=== PATIENT | male | born 1995 | race Hispanic/Latino ===

== ENCOUNTER 2022-05-15 11:17 | Inpatient (IN) | payer OTHER ==
[~2022-05-15] VITALS: Ht 180.3 cm; Wt 103.9 kg
[2022-05-15] MEDS ORDERED: LORazepam 2 MG TAB PO PRN (11:35)
[2022-05-15 12:19] LABS: HEMATOCRIT 45.2 % (42.0-52.0); HEMOGLOBIN 15.1 g/dl (13.5-17.5); MEAN CORPUSCULAR HEMOGLOBIN 32.4 pg (27.0-33.0); MEAN CORPUSCULAR HGB CONC 33.4 g/dl (32.0-36.5); PLATELET COUNT, AUTOMATED 195 10^3/uL (150-450); RED BLOOD COUNT 4.66 10^6/uL (4.30-6.10)
[2022-05-15 12:36] LABS: ETHYL ALCOHOL (ETHANOL) 0.242 % (0.000-0.010)
[2022-05-15 12:38] LABS: ACETAMINOPHEN LEVEL < 2.0 UG/ML (10.0-20.0); SALICYLATE LEVEL < 3.0 MG/DL (<30)
[2022-05-15 12:43] LABS: ALBUMIN 4.4 G/DL (3.2-5.2); ALKALINE PHOSPHATASE 85 U/L (46-116); ALT/SGPT 41 U/L (7.0-40); AST/SGOT 41 U/L (<34); BILIRUBIN,DIRECT 0.1 MG/DL (<0.4); BILIRUBIN,TOTAL 0.6 MG/DL (0.3-1.2); BLOOD UREA NITROGEN 10 MG/DL (9-23); CALCIUM LEVEL 8.3 MG/DL (8.5-10.1); CARBON DIOXIDE LEVEL 25 MMOL/L (20-31); CHLORIDE LEVEL 103 MMOL/L (98-107); CREATININE FOR GFR 0.82 MG/DL (0.70-1.30); GLOMERULAR FILTRATION RATE > 60.0 (>60); GLUCOSE, FASTING 95 MG/DL (60-100); POTASSIUM SERUM 3.9 MMOL/L (3.5-5.1); SODIUM LEVEL 140 MMOL/L (136-145); THYROID STIMULATING HORMONE 1.172 uIU/ML (0.55-4.78); TOTAL PROTEIN 7.9 G/DL (5.7-8.2)
[2022-05-15] MEDS ORDERED: RIFA30CA PO.IMMUN (14:43)
[2022-05-15 15:15] LABS: AMPHETAMINES LEVEL URINE NEGATIVE (NEGATIVE); BARBITURATES URINE NEGATIVE (NEGATIVE); BENZODIAZEPINES URINE NEGATIVE (NEGATIVE)
[2022-05-15 15:16] LABS: CANNABINOIDS URINE NEGATIVE (NEGATIVE); COCAINE METABOLITE URINE NEGATIVE (NEGATIVE); METHADONE URINE NEGATIVE (NEGATIVE); PHENCYCLIDINE URINE NEGATIVE (NEGATIVE)
[2022-05-15 15:17] LABS: OPIATES URINE NEGATIVE (NEGATIVE)
[2022-05-15] MEDS: THIAMINE 100 MG TAB PO SCH (21:36)
[2022-05-15] MEDS: rifAMPin 150MG CAPSULE PO SCH (21:37)
[2022-05-15] MEDS ORDERED: RIFA300C8 PO (23:51)
[2022-05-16] MEDS ORDERED: HOME MED LIST COMPLETE! XX SCH (08:10)
[2022-05-16] MEDS ORDERED: FOLIC ACID 1MG TAB PO SCH (09:00)
[2022-05-16] MEDS ORDERED: MULTIVITAMINS/MINERALS THERAP 1 TAB PO SCH (09:00)
[2022-05-16] MEDS: THIAMINE 100 MG TAB PO SCH ×2 (09:19→20:59)
[2022-05-16] MEDS: rifAMPin 150MG CAPSULE PO SCH (09:19)
[2022-05-16] MEDS ORDERED: IBUPROFEN 400MG TAB PO PRN (13:05)
[2022-05-16] MEDS ORDERED: LORazepam 2 MG TAB PO PRN (13:05)
[2022-05-16] MEDS ORDERED: traZODone 50 MG TAB PO PRN (13:05)
[2022-05-16] MEDS ORDERED: MAALOX 30 ML SUSP *UDC PO PRN (13:05)
[2022-05-16] MEDS ORDERED: MOM 30ML SUSPENSION UDC PO PRN (13:05)
[2022-05-16 16:00] VITALS: BP 133/80
[2022-05-16] MEDS ORDERED: rifAMPin 150MG CAPSULE PO ONE (17:00)
[2022-05-16 22:03] VITALS: BP 138/86
[2022-05-17 06:38] VITALS: BP 128/71
[2022-05-17] MEDS: NICOTINE 21MG/24HR 1 EA TRANSDERMAL TD SCH (09:00)
[2022-05-17] MEDS ORDERED: rifAMPin 150MG CAPSULE PO SCH (09:00)
[2022-05-17] MEDS: MULTIVITAMINS/MINERALS THERAP 1 TAB PO SCH (09:22)
[2022-05-17] MEDS: FOLIC ACID 1MG TAB PO SCH (09:22)
[2022-05-17] MEDS: THIAMINE 100 MG TAB PO SCH ×2 (09:22→20:53)
[2022-05-17 12:00] VITALS: BP 130/86
[2022-05-17] MEDS ORDERED: hydrOXYzine 50 MG TAB PO PRN (17:25)
[2022-05-17 18:41] VITALS: BP 160/91
[2022-05-18] MEDS: rifAMPin 150MG CAPSULE PO SCH (05:39)
[2022-05-18 06:44] VITALS: BP 123/70
[2022-05-18] MEDS: FOLIC ACID 1MG TAB PO SCH (08:29)
[2022-05-18] MEDS: MULTIVITAMINS/MINERALS THERAP 1 TAB PO SCH (08:29)
[2022-05-18] MEDS: THIAMINE 100 MG TAB PO SCH (08:29)
[2022-05-18] MEDS: NICOTINE 21MG/24HR 1 EA TRANSDERMAL TD SCH (09:00)
[2022-05-18 18:21] VITALS: BP 131/76
[2022-05-19] MEDS: rifAMPin 150MG CAPSULE PO SCH (05:31)
[2022-05-19 06:09] VITALS: BP 118/73
[2022-05-19] MEDS: NICOTINE 21MG/24HR 1 EA TRANSDERMAL TD SCH (09:00)
[2022-05-19] MEDS: FOLIC ACID 1MG TAB PO SCH (09:36)
[2022-05-19] MEDS: MULTIVITAMINS/MINERALS THERAP 1 TAB PO SCH (09:36)
[2022-05-19 16:08] VITALS: BP 135/83
[2022-05-20] MEDS: rifAMPin 150MG CAPSULE PO SCH (05:52)
[2022-05-20 06:21] VITALS: BP 142/84
[2022-05-20] MEDS: MULTIVITAMINS/MINERALS THERAP 1 TAB PO SCH (08:31)
[2022-05-20] MEDS: FOLIC ACID 1MG TAB PO SCH (08:31)
[2022-05-20] MEDS: NICOTINE 21MG/24HR 1 EA TRANSDERMAL TD SCH (08:31)
== END 2022-05-20 13:09 | disposition home or self-care (01) | DRG 882 ==
LOC: M ED 11:17 → EDBD 11:17 → M ED INP 05-16 13:05 → M PSY 05-16 15:35
PROVIDERS: ADMIT Student in an Organized Health Care Education/Training Program; ATTEND Psychiatry & Neurology Psychiatry
DX: F43.23 Adjustment disorder with mixed anxiety and depressed mood (principal); F10.94 Alcohol use, unspecified with alcohol-induced mood disorder; R45.851 Suicidal ideations; F10.920 Alcohol use, unspecified with intoxication, uncomplicated; Z86.15 Personal history of latent tuberculosis infection; Z63.0 Problems in relationship with spouse or partner; F17.290 Nicotine dependence, other tobacco product, uncomplicated; R19.7 Diarrhea, unspecified; R74.01 Elevation of levels of liver transaminase levels; Z20.822 Contact with and (suspected) exposure to COVID-19

== ENCOUNTER → 2024-07-02 | Outpatient (REF) | payer OTHER ==
[~2024-07-02] MED LIST: RIFA300C62 PO; RIFA30CA PO.IMMUN
== END ==
LOC: M LAB REF 08:48
PROVIDERS: ATTEND General Practice
DX: N46.9 Male infertility, unspecified (principal)

== ENCOUNTER → 2024-07-06 | Outpatient (REF) | payer OTHER ==
[2024-07-06 10:01] LABS: SEMEN APPEARANCE OPAQUE (OPAQUE); SEMEN VISCOSITY LIQUID (LIQUID); SEMEN VOLUME 3.8 ml (2.0-5.0); SEMEN pH 8.5 (7.0-8.0); WBC CONCENTRATION <=1 M/ml (<=1 M/ml)
[2024-07-06 10:02] LABS: SPERM CONCENTRATION 60.1 M/ml (>=15.0); TOTAL PROGRESSIVE SPERM 111.1 M/Ejac.
== END ==
LOC: M LAB REF 09:53
PROVIDERS: ATTEND General Practice
DX: N46.9 Male infertility, unspecified (principal)